=== PATIENT | male | born 1970 | race Native Hawaiian/Other Pacific Islander ===

== ENCOUNTER 2021-04-15 13:21 | Inpatient (IN) | payer OTHER ==
[2021-04-15 14:20] VITALS: BMI 23.7
[2021-04-15] MEDS ORDERED: MAG HYDROX/AL HYDROX/SIMETH 30 ML UNIT-DOSE CUP PO PRN (14:26)
[2021-04-15] MEDS ORDERED: MENTHOL/PHENOL 1 EACH UD MM PRN (14:26)
[2021-04-15] MEDS ORDERED: chlordiazePOXIDE HCL 25 MG CAPSULE PO ONE (14:26)
[2021-04-15] MEDS ORDERED: MAGNESIUM HYDROX 2400MG/30ML ORAL SUSPENSION 30 ML CUP PO PRN (14:26)
[2021-04-15] MEDS ORDERED: chlordiazePOXIDE HCL 25 MG CAPSULE PO PRN (14:26)
[2021-04-15] MEDS ORDERED: MAGNESIUM CITRATE 300 ML BOTTLE PO PRN (14:26)
[2021-04-15] MEDS ORDERED: ACETAMINOPHEN 325 MG TABLET (FP) PO PRN ×2 (14:26)
[2021-04-15] MEDS ORDERED: METHOCARBAMOL 500 MG TABLET PO PRN (14:26)
[2021-04-15] MEDS ORDERED: IBUPROFEN 400 MG TABLET (FP) PO PRN (14:26)
[2021-04-15] MEDS ORDERED: NICOTINE 10 MG CARTRIDGE (INHALER) IH PRN (14:26)
[2021-04-15] MEDS: BUPRENORPHINE/NALOXONE 4 MG/1 MG FILM PACKET SL SCH (17:39)
[2021-04-15] MEDS: chlordiazePOXIDE HCL 25 MG CAPSULE PO SCH ×2 (17:43→22:22)
[2021-04-15] MEDS: hydrOXYzine PAMOATE 25 MG CAPSULE (FP) PO SCH ×2 (17:50→22:22)
[2021-04-15] MEDS: PRENATAL VITAMINS W/ FOLIC ACID TABLET (FP) PO SCH (18:26)
[2021-04-15] MEDS: THIAMINE HCL 100 MG TABLET (FP) PO SCH (22:22)
[2021-04-15] MEDS: MELATONIN 5 MG TABLETS PO SCH (22:23)
[2021-04-16] MEDS: chlordiazePOXIDE HCL 25 MG CAPSULE PO SCH ×4 (06:22→22:07)
[2021-04-16] MEDS: hydrOXYzine PAMOATE 25 MG CAPSULE (FP) PO SCH ×5 (06:22→22:06)
[2021-04-16 10:27] LABS: HEMATOCRIT 37.8 % (35.4-49); HEMOGLOBIN 13.3 GM/dL (11.7-16.9); MCH 31.3 pg (25.7-33.7); MCHC 35.1 g/dl (32.0-35.9); MEAN PLT VOLUME 7.5 fl (7.5-11.1); PLATELET COUNT 250 10^3/uL (134-434); RBC 4.25 M/mm3 (4.00-5.60); RDW 12.9 % (11.9-15.9)
[2021-04-16 10:35] LABS: ALBUMIN 3.1 g/dl (3.4-5.0); BLOOD UREA NITROGEN 21.9 mg/dL (7-18); CALCIUM 8.2 mg/dL (8.5-10.1)
[2021-04-16 10:38] LABS: CREATININE 0.9 mg/dL (0.55-1.3)
[2021-04-16 10:39] LABS: BILIRUBIN,TOTAL 0.2 mg/dL (0.2-1); TOT PROT 6.1 g/dl (6.4-8.2)
[2021-04-16] MEDS: BUPRENORPHINE/NALOXONE 4 MG/1 MG FILM PACKET SL SCH (11:11)
[2021-04-16] MEDS: PRENATAL VITAMINS W/ FOLIC ACID TABLET (FP) PO SCH (11:13)
[2021-04-16] MEDS: NICOTINE POLACRILEX 4 MG GUM BUC PRN (17:58)
[2021-04-16] MEDS: CALCIUM CARBONATE 650 MG TABLET PO SCH (22:06)
[2021-04-16] MEDS: THIAMINE HCL 100 MG TABLET (FP) PO SCH (22:06)
[2021-04-16] MEDS: QUEtiapine FUMARATE 50 MG TABLET PO SCH (22:06)
[2021-04-16] MEDS: MELATONIN 5 MG TABLETS PO SCH (22:48)
[2021-04-17] MEDS: chlordiazePOXIDE HCL 25 MG CAPSULE PO SCH ×4 (06:04→22:59)
[2021-04-17] MEDS: hydrOXYzine PAMOATE 25 MG CAPSULE (FP) PO SCH ×5 (06:04→22:58)
[2021-04-17] MEDS: PRENATAL VITAMINS W/ FOLIC ACID TABLET (FP) PO SCH (10:22)
[2021-04-17] MEDS: CALCIUM CARBONATE 650 MG TABLET PO SCH ×2 (10:22→22:58)
[2021-04-17] MEDS: BUPRENORPHINE/NALOXONE 4 MG/1 MG FILM PACKET SL SCH (10:23)
[2021-04-17] MEDS: NICOTINE POLACRILEX 4 MG GUM BUC PRN (15:08)
[2021-04-17] MEDS ORDERED: TRIMETHOBENZAMIDE HCL 200MG/2ML INJ IM ONE (21:46)
[2021-04-17] MEDS: THIAMINE HCL 100 MG TABLET (FP) PO SCH (22:58)
[2021-04-17] MEDS: QUEtiapine FUMARATE 50 MG TABLET PO SCH (22:58)
[2021-04-17] MEDS: MELATONIN 5 MG TABLETS PO SCH (22:58)
[2021-04-18] MEDS ORDERED: chlordiazePOXIDE HCL 10 MG CAPSULE PO PRN
[2021-04-18] MEDS: ONDANSETRON *ODT* 4 MG TABLET SL PRN ×2 (02:50→10:51)
[2021-04-18] MEDS ORDERED: TRIMETHOBENZAMIDE HCL 200MG/2ML INJ IM ONE (03:52)
[2021-04-18] MEDS: chlordiazePOXIDE HCL 10 MG CAPSULE PO SCH ×4 (06:04→22:24)
[2021-04-18] MEDS: BISMUTH SUBSALICYLATE 524 MG/30 ML PO PRN (06:19)
[2021-04-18] MEDS: hydrOXYzine PAMOATE 25 MG CAPSULE (FP) PO SCH ×5 (07:04→22:22)
[2021-04-18] MEDS: BUPRENORPHINE/NALOXONE 4 MG/1 MG FILM PACKET SL SCH (10:21)
[2021-04-18] MEDS: NICOTINE POLACRILEX 4 MG GUM BUC PRN (10:22)
[2021-04-18] MEDS: PRENATAL VITAMINS W/ FOLIC ACID TABLET (FP) PO SCH (10:50)
[2021-04-18] MEDS: CALCIUM CARBONATE 650 MG TABLET PO SCH ×2 (10:59→22:23)
[2021-04-18] MEDS: THIAMINE HCL 100 MG TABLET (FP) PO SCH (22:22)
[2021-04-18] MEDS: QUEtiapine FUMARATE 50 MG TABLET PO SCH (22:22)
[2021-04-18] MEDS: MELATONIN 5 MG TABLETS PO SCH (22:22)
[2021-04-19] MEDS: ONDANSETRON *ODT* 4 MG TABLET SL PRN (07:11)
[2021-04-19] MEDS: chlordiazePOXIDE HCL 10 MG CAPSULE PO SCH ×2 (07:13→17:56)
[2021-04-19] MEDS: hydrOXYzine PAMOATE 25 MG CAPSULE (FP) PO SCH ×5 (07:13→22:09)
[2021-04-19] MEDS: PRENATAL VITAMINS W/ FOLIC ACID TABLET (FP) PO SCH (11:48)
[2021-04-19] MEDS: BUPRENORPHINE/NALOXONE 4 MG/1 MG FILM PACKET SL SCH (11:48)
[2021-04-19] MEDS: CALCIUM CARBONATE 650 MG TABLET PO SCH (11:49)
[2021-04-19 12:38] LABS: CALCIUM 8.6 mg/dL (8.5-10.1)
[2021-04-19 12:42] LABS: CREATININE 0.8 mg/dL (0.55-1.3)
[2021-04-19] MEDS: QUEtiapine FUMARATE 50 MG TABLET PO SCH (22:09)
[2021-04-19] MEDS: MELATONIN 5 MG TABLETS PO SCH (22:09)
[2021-04-19] MEDS: THIAMINE HCL 100 MG TABLET (FP) PO SCH (22:09)
[2021-04-19] MEDS: NICOTINE POLACRILEX 4 MG GUM BUC PRN (22:10)
[2021-04-20] MEDS ORDERED: chlordiazePOXIDE HCL 10 MG CAPSULE PO ONE (05:00)
[2021-04-20] MEDS: hydrOXYzine PAMOATE 25 MG CAPSULE (FP) PO SCH ×2 (06:22→10:16)
[2021-04-20] MEDS: NICOTINE POLACRILEX 4 MG GUM BUC PRN ×2 (06:25→10:17)
[2021-04-20] MEDS: BISMUTH SUBSALICYLATE 524 MG/30 ML PO PRN (08:32)
[2021-04-20 08:58] VITALS: BP 113/75; PULSE 108; TEMP 96.8
[2021-04-20] MEDS ORDERED: BUPRENORPHINE/NALOXONE 4 MG/1 MG FILM PACKET SL SCH (10:00)
[2021-04-20] MEDS: PRENATAL VITAMINS W/ FOLIC ACID TABLET (FP) PO SCH (10:16)
[2021-04-20] MEDS ORDERED: LOPERAMIDE HCL 2 MG CAPSULE PO ONE (12:18)
== END 2021-04-20 12:45 | disposition other institution (70) | DRG 773 ==
LOC: YASAS 13:21 → Y3N 14:28
PROVIDERS: ADMIT Allergy & Immunology; ATTEND Allergy & Immunology
PROC: HZ2ZZZZ Detoxification Services for Substance Abuse Treatment (ICD-10-PCS; principal; 2021-04-15)
DX: F11.23 Opioid dependence with withdrawal (principal); F10.230 Alcohol dependence with withdrawal, uncomplicated; F14.20 Cocaine dependence, uncomplicated; F17.210 Nicotine dependence, cigarettes, uncomplicated; F43.10 Post-traumatic stress disorder, unspecified; F41.9 Anxiety disorder, unspecified; F19.282 Other psychoactive substance dependence with psychoactive substance-induced sleep disorder; E86.0 Dehydration; R79.89 Other specified abnormal findings of blood chemistry; E83.51 Hypocalcemia; E46 Unspecified protein-calorie malnutrition; Z68.23 Body mass index [BMI] 23.0-23.9, adult; Z62.810 Personal history of physical and sexual abuse in childhood; Z56.0 Unemployment, unspecified; Z59.00 Homelessness unspecified
CPT/HCPCS: 36415; 80048; 80053; 85027; 86780; 87811; 93005; 93010; C9803; Q0162; U0003; U0005

== ENCOUNTER 2021-04-20 12:51 | Inpatient (IN) | payer OTHER ==
[2021-04-20] MEDS ORDERED: NICOTINE 10 MG CARTRIDGE (INHALER) IH PRN (13:47)
[2021-04-20] MEDS ORDERED: hydrOXYzine PAMOATE 25 MG CAPSULE (FP) PO PRN (13:47)
[2021-04-20] MEDS ORDERED: ACETAMINOPHEN 325 MG TABLET (FP) PO PRN (13:47)
[2021-04-20] MEDS ORDERED: guaiFENesin 200 MG/10 ML 10 ML UNIT-DOSE CUPS PO PRN (13:47)
[2021-04-20] MEDS ORDERED: MAGNESIUM HYDROX 2400MG/30ML ORAL SUSPENSION 30 ML CUP PO PRN (13:47)
[2021-04-20] MEDS ORDERED: P-EPHED 60MG/TRIPROLIDI 2.5MG TABLET PO PRN (13:47)
[2021-04-20] MEDS ORDERED: MAG HYDROX/AL HYDROX/SIMETH 30 ML UNIT-DOSE CUP PO PRN (13:47)
[2021-04-20] MEDS ORDERED: IBUPROFEN 400 MG TABLET (FP) PO PRN (13:47)
[2021-04-20] MEDS ORDERED: MAGNESIUM CITRATE 300 ML BOTTLE PO PRN (13:47)
[2021-04-20] MEDS ORDERED: MENTHOL/PHENOL 1 EACH UD MM PRN (13:47)
[2021-04-20] MEDS: THIAMINE HCL 100 MG TABLET (FP) PO SCH (21:28)
[2021-04-20] MEDS: QUEtiapine FUMARATE 50 MG TABLET PO SCH (21:28)
[2021-04-20] MEDS: MELATONIN 5 MG TABLETS PO SCH (21:28)
[2021-04-20] MEDS: BUPRENORPHINE/NALOXONE 4 MG/1 MG FILM PACKET SL SCH (21:29)
[2021-04-21] MEDS: LOPERAMIDE HCL 2 MG CAPSULE PO PRN (08:35)
[2021-04-21] MEDS ORDERED: TRIMETHOBENZAMIDE HCL 200MG/2ML INJ IM ONE ×2 (08:36→12:57)
[2021-04-21] MEDS ORDERED: ONDANSETRON *ODT* 4 MG TABLET SL PRN (08:37)
[2021-04-21] MEDS ORDERED: DICYCLOMINE HCL 10 MG CAPSULE PO PRN (10:22)
[2021-04-21] MEDS: PRENATAL VITAMINS W/ FOLIC ACID TABLET (FP) PO SCH (11:00)
[2021-04-21] MEDS: BUPRENORPHINE/NALOXONE 4 MG/1 MG FILM PACKET SL SCH ×2 (11:00→21:12)
[2021-04-21] MEDS: NICOTINE 7 MG/24 HOURS TOPICAL PATCH TD SCH (11:00)
[2021-04-21] MEDS ORDERED: FLU VACC QS2021-22(6MOS UP)/PF 60 MCG/0.5 ML SYRINGE IM ONE (12:00)
[2021-04-21] MEDS ORDERED: LORazepam 2 MG/ML SDV VIAL IM ONE (13:00)
[2021-04-21] MEDS ORDERED: BUPRENORPHINE/NALOXONE 4 MG/1 MG FILM PACKET SL ONE (14:30)
[2021-04-21 16:04] LABS: PH,URINE 5.5 (5.0-8.0); URINE APPEARANCE TURBID; URINE BILIRUBIN NEGATIVE (NEGATIVE); URINE COLOR YELLOW; URINE GLUCOSE (UA) NEGATIVE (NEGATIVE); URINE KETONE NEGATIVE (NEGATIVE); URINE LEUK ESTERASE NEGATIVE (NEGATIVE); URINE NITRITE NEGATIVE (NEGATIVE); URINE PROTEIN NEGATIVE (NEGATIVE); URINE UROBILINOGEN 0.2 mg/dL (0.2-1.0)
[2021-04-21] MEDS: QUEtiapine FUMARATE 50 MG TABLET PO SCH (21:12)
[2021-04-21] MEDS: THIAMINE HCL 100 MG TABLET (FP) PO SCH (21:12)
[2021-04-21] MEDS: MELATONIN 5 MG TABLETS PO SCH (21:13)
[2021-04-21] MEDS: NICOTINE POLACRILEX 2 MG GUM BUC PRN (21:15)
[2021-04-22] MEDS: NICOTINE 7 MG/24 HOURS TOPICAL PATCH TD SCH (09:53)
[2021-04-22] MEDS: PRENATAL VITAMINS W/ FOLIC ACID TABLET (FP) PO SCH (09:53)
[2021-04-22] MEDS: BUPRENORPHINE/NALOXONE 4 MG/1 MG FILM PACKET SL SCH ×2 (09:54→21:08)
[2021-04-22] MEDS: LOPERAMIDE HCL 2 MG CAPSULE PO PRN (09:55)
[2021-04-22] MEDS: NICOTINE POLACRILEX 2 MG GUM BUC PRN ×2 (10:09→21:11)
[2021-04-22] MEDS: THIAMINE HCL 100 MG TABLET (FP) PO SCH (21:08)
[2021-04-22] MEDS: QUEtiapine FUMARATE 50 MG TABLET PO SCH (21:08)
[2021-04-22] MEDS: MELATONIN 5 MG TABLETS PO SCH (21:08)
[2021-04-23] MEDS: BUPRENORPHINE/NALOXONE 4 MG/1 MG FILM PACKET SL SCH ×2 (09:14→21:14)
[2021-04-23] MEDS: PRENATAL VITAMINS W/ FOLIC ACID TABLET (FP) PO SCH (09:14)
[2021-04-23] MEDS: NICOTINE POLACRILEX 2 MG GUM BUC PRN ×2 (09:14→15:42)
[2021-04-23] MEDS: NICOTINE 7 MG/24 HOURS TOPICAL PATCH TD SCH (09:14)
[2021-04-23] MEDS: THIAMINE HCL 100 MG TABLET (FP) PO SCH (21:12)
[2021-04-23] MEDS: MELATONIN 5 MG TABLETS PO SCH (21:12)
[2021-04-23] MEDS: QUEtiapine FUMARATE 50 MG TABLET PO SCH (21:12)
[2021-04-24] MEDS: BUPRENORPHINE/NALOXONE 4 MG/1 MG FILM PACKET SL SCH ×2 (10:05→21:24)
[2021-04-24] MEDS: PRENATAL VITAMINS W/ FOLIC ACID TABLET (FP) PO SCH (10:05)
[2021-04-24] MEDS: NICOTINE 7 MG/24 HOURS TOPICAL PATCH TD SCH (10:06)
[2021-04-24] MEDS: NICOTINE POLACRILEX 2 MG GUM BUC PRN ×3 (10:07→21:24)
[2021-04-24] MEDS: THIAMINE HCL 100 MG TABLET (FP) PO SCH (21:24)
[2021-04-24] MEDS: MELATONIN 5 MG TABLETS PO SCH (21:28)
[2021-04-24] MEDS: QUEtiapine FUMARATE 50 MG TABLET PO SCH (21:29)
[2021-04-25] MEDS: PRENATAL VITAMINS W/ FOLIC ACID TABLET (FP) PO SCH (09:23)
[2021-04-25] MEDS: NICOTINE 7 MG/24 HOURS TOPICAL PATCH TD SCH (09:23)
[2021-04-25] MEDS: BUPRENORPHINE/NALOXONE 4 MG/1 MG FILM PACKET SL SCH ×2 (09:23→21:24)
[2021-04-25] MEDS: NICOTINE POLACRILEX 2 MG GUM BUC PRN ×2 (09:24→21:26)
[2021-04-25] MEDS: QUEtiapine FUMARATE 50 MG TABLET PO SCH (21:23)
[2021-04-25] MEDS: MELATONIN 5 MG TABLETS PO SCH (21:23)
[2021-04-25] MEDS: THIAMINE HCL 100 MG TABLET (FP) PO SCH (21:23)
[2021-04-26] MEDS: NICOTINE 7 MG/24 HOURS TOPICAL PATCH TD SCH (10:10)
[2021-04-26] MEDS: PRENATAL VITAMINS W/ FOLIC ACID TABLET (FP) PO SCH (10:10)
[2021-04-26] MEDS: BUPRENORPHINE/NALOXONE 4 MG/1 MG FILM PACKET SL SCH ×2 (10:10→21:06)
[2021-04-26] MEDS: NICOTINE POLACRILEX 2 MG GUM BUC PRN ×2 (10:11→19:45)
[2021-04-26] MEDS ORDERED: PT OWN MED DRAWER 7, Y5N ONE (11:07)
[2021-04-26] MEDS: MELATONIN 5 MG TABLETS PO SCH (21:05)
[2021-04-26] MEDS: QUEtiapine FUMARATE 50 MG TABLET PO SCH (21:05)
[2021-04-26] MEDS: THIAMINE HCL 100 MG TABLET (FP) PO SCH (21:06)
[2021-04-27] MEDS: NICOTINE 7 MG/24 HOURS TOPICAL PATCH TD SCH (09:18)
[2021-04-27] MEDS: PRENATAL VITAMINS W/ FOLIC ACID TABLET (FP) PO SCH (09:18)
[2021-04-27] MEDS: BUPRENORPHINE/NALOXONE 4 MG/1 MG FILM PACKET SL SCH ×2 (09:18→18:07)
[2021-04-27] MEDS: NICOTINE POLACRILEX 2 MG GUM BUC PRN ×4 (09:19→21:14)
[2021-04-27] MEDS ORDERED: BUPRENORPHINE/NALOXONE 4 MG/1 MG FILM PACKET SL ONE (14:30)
[2021-04-27] MEDS ORDERED: PT OWN MED DRAWER 7, Y5N ONE (14:55)
[2021-04-27] MEDS: QUEtiapine FUMARATE 50 MG TABLET PO SCH (21:13)
[2021-04-27] MEDS: THIAMINE HCL 100 MG TABLET (FP) PO SCH (21:13)
[2021-04-27] MEDS: MELATONIN 5 MG TABLETS PO SCH (21:13)
[2021-04-27] MEDS ORDERED: BUPRENORPHINE/NALOXONE 4 MG/1 MG FILM PACKET SL SCH (22:00)
[2021-04-28] MEDS: BUPRENORPHINE/NALOXONE 4 MG/1 MG FILM PACKET SL SCH ×3 (06:44→17:48)
[2021-04-28] MEDS: NICOTINE POLACRILEX 2 MG GUM BUC PRN ×3 (06:45→21:31)
[2021-04-28] MEDS: NICOTINE 7 MG/24 HOURS TOPICAL PATCH TD SCH (09:58)
[2021-04-28] MEDS: PRENATAL VITAMINS W/ FOLIC ACID TABLET (FP) PO SCH (09:58)
[2021-04-28] MEDS ORDERED: PT OWN MED DRAWER 7, Y5N ONE (15:13)
[2021-04-28] MEDS: MELATONIN 5 MG TABLETS PO SCH (21:27)
[2021-04-28] MEDS: QUEtiapine FUMARATE 50 MG TABLET PO SCH (21:29)
[2021-04-28] MEDS: THIAMINE HCL 100 MG TABLET (FP) PO SCH (22:05)
[2021-04-29] MEDS: BUPRENORPHINE/NALOXONE 4 MG/1 MG FILM PACKET SL SCH ×3 (06:19→18:05)
[2021-04-29] MEDS: NICOTINE POLACRILEX 2 MG GUM BUC PRN ×4 (06:20→21:06)
[2021-04-29] MEDS: NICOTINE 7 MG/24 HOURS TOPICAL PATCH TD SCH (10:02)
[2021-04-29] MEDS: PRENATAL VITAMINS W/ FOLIC ACID TABLET (FP) PO SCH (10:02)
[2021-04-29] MEDS: THIAMINE HCL 100 MG TABLET (FP) PO SCH (21:05)
[2021-04-29] MEDS: QUEtiapine FUMARATE 50 MG TABLET PO SCH (21:05)
[2021-04-29] MEDS: MELATONIN 5 MG TABLETS PO SCH (21:05)
[2021-04-30] MEDS: BUPRENORPHINE/NALOXONE 4 MG/1 MG FILM PACKET SL SCH ×3 (06:20→18:00)
[2021-04-30] MEDS: NICOTINE POLACRILEX 2 MG GUM BUC PRN ×4 (06:21→21:10)
[2021-04-30] MEDS: NICOTINE 7 MG/24 HOURS TOPICAL PATCH TD SCH (10:14)
[2021-04-30] MEDS: PRENATAL VITAMINS W/ FOLIC ACID TABLET (FP) PO SCH (10:14)
[2021-04-30] MEDS: MELATONIN 5 MG TABLETS PO SCH (21:09)
[2021-04-30] MEDS: QUEtiapine FUMARATE 50 MG TABLET PO SCH (21:09)
[2021-04-30] MEDS: THIAMINE HCL 100 MG TABLET (FP) PO SCH (21:10)
[2021-05-01] MEDS: NICOTINE POLACRILEX 2 MG GUM BUC PRN ×3 (06:30→21:02)
[2021-05-01] MEDS: BUPRENORPHINE/NALOXONE 4 MG/1 MG FILM PACKET SL SCH ×3 (06:30→17:30)
[2021-05-01] MEDS: PRENATAL VITAMINS W/ FOLIC ACID TABLET (FP) PO SCH (09:21)
[2021-05-01] MEDS: NICOTINE 7 MG/24 HOURS TOPICAL PATCH TD SCH (09:22)
[2021-05-01] MEDS: MELATONIN 5 MG TABLETS PO SCH (21:02)
[2021-05-01] MEDS: THIAMINE HCL 100 MG TABLET (FP) PO SCH (21:02)
[2021-05-01] MEDS: QUEtiapine FUMARATE 50 MG TABLET PO SCH (21:02)
[2021-05-02] MEDS: BUPRENORPHINE/NALOXONE 4 MG/1 MG FILM PACKET SL SCH (06:19)
[2021-05-02] MEDS: NICOTINE POLACRILEX 2 MG GUM BUC PRN ×3 (06:20→19:58)
[2021-05-02] MEDS: PRENATAL VITAMINS W/ FOLIC ACID TABLET (FP) PO SCH (09:32)
[2021-05-02] MEDS: NICOTINE 7 MG/24 HOURS TOPICAL PATCH TD SCH (09:32)
[2021-05-02] MEDS: THIAMINE HCL 100 MG TABLET (FP) PO SCH (21:29)
[2021-05-02] MEDS: MELATONIN 5 MG TABLETS PO SCH (21:29)
[2021-05-02] MEDS: QUEtiapine FUMARATE 50 MG TABLET PO SCH (21:29)
[2021-05-02] MEDS: BUPRENORPHINE/NALOXONE 8 MG/2 MG FILM PACKET SL SCH (21:33)
[2021-05-03] MEDS: NICOTINE 7 MG/24 HOURS TOPICAL PATCH TD SCH (09:59)
[2021-05-03] MEDS: PRENATAL VITAMINS W/ FOLIC ACID TABLET (FP) PO SCH (09:59)
[2021-05-03] MEDS: BUPRENORPHINE/NALOXONE 8 MG/2 MG FILM PACKET SL SCH ×2 (09:59→21:12)
[2021-05-03] MEDS: NICOTINE POLACRILEX 2 MG GUM BUC PRN ×3 (10:00→18:20)
[2021-05-03] MEDS: QUEtiapine FUMARATE 50 MG TABLET PO SCH (21:12)
[2021-05-03] MEDS: MELATONIN 5 MG TABLETS PO SCH (21:12)
[2021-05-03] MEDS: THIAMINE HCL 100 MG TABLET (FP) PO SCH (21:12)
[2021-05-04] MEDS: PRENATAL VITAMINS W/ FOLIC ACID TABLET (FP) PO SCH (09:16)
[2021-05-04] MEDS: NICOTINE 7 MG/24 HOURS TOPICAL PATCH TD SCH (09:16)
[2021-05-04] MEDS: BUPRENORPHINE/NALOXONE 8 MG/2 MG FILM PACKET SL SCH ×2 (09:17→21:13)
[2021-05-04] MEDS: NICOTINE POLACRILEX 2 MG GUM BUC PRN ×3 (09:17→17:56)
[2021-05-04] MEDS: QUEtiapine FUMARATE 50 MG TABLET PO SCH (21:13)
[2021-05-04] MEDS: MELATONIN 5 MG TABLETS PO SCH (21:13)
[2021-05-04] MEDS: THIAMINE HCL 100 MG TABLET (FP) PO SCH (21:13)
[2021-05-05] MEDS: PRENATAL VITAMINS W/ FOLIC ACID TABLET (FP) PO SCH (10:09)
[2021-05-05] MEDS: BUPRENORPHINE/NALOXONE 8 MG/2 MG FILM PACKET SL SCH ×2 (10:09→21:14)
[2021-05-05] MEDS: NICOTINE POLACRILEX 2 MG GUM BUC PRN ×3 (10:11→19:52)
[2021-05-05] MEDS: NICOTINE 7 MG/24 HOURS TOPICAL PATCH TD SCH ×2 (11:14→11:32)
[2021-05-05] MEDS: THIAMINE HCL 100 MG TABLET (FP) PO SCH (21:12)
[2021-05-05] MEDS: MELATONIN 5 MG TABLETS PO SCH (21:12)
[2021-05-05] MEDS: QUEtiapine FUMARATE 50 MG TABLET PO SCH (21:13)
[2021-05-06] MEDS: NICOTINE POLACRILEX 2 MG GUM BUC PRN ×2 (09:35→20:14)
[2021-05-06] MEDS: NICOTINE 7 MG/24 HOURS TOPICAL PATCH TD SCH (09:35)
[2021-05-06] MEDS: PRENATAL VITAMINS W/ FOLIC ACID TABLET (FP) PO SCH (09:35)
[2021-05-06] MEDS: BUPRENORPHINE/NALOXONE 8 MG/2 MG FILM PACKET SL SCH ×2 (09:35→21:45)
[2021-05-06] MEDS: QUEtiapine FUMARATE 50 MG TABLET PO SCH (21:44)
[2021-05-06] MEDS: THIAMINE HCL 100 MG TABLET (FP) PO SCH (21:44)
[2021-05-06] MEDS: MELATONIN 5 MG TABLETS PO SCH (21:44)
[2021-05-07] MEDS: BUPRENORPHINE/NALOXONE 8 MG/2 MG FILM PACKET SL SCH ×2 (09:55→21:31)
[2021-05-07] MEDS: PRENATAL VITAMINS W/ FOLIC ACID TABLET (FP) PO SCH (09:55)
[2021-05-07] MEDS: NICOTINE 7 MG/24 HOURS TOPICAL PATCH TD SCH (09:56)
[2021-05-07] MEDS: NICOTINE POLACRILEX 2 MG GUM BUC PRN ×3 (12:54→21:41)
[2021-05-07] MEDS: QUEtiapine FUMARATE 50 MG TABLET PO SCH (21:30)
[2021-05-07] MEDS: THIAMINE HCL 100 MG TABLET (FP) PO SCH (21:30)
[2021-05-07] MEDS: MELATONIN 5 MG TABLETS PO SCH (21:30)
[2021-05-08 07:12] VITALS: BP 103/63; PULSE 67; TEMP 97.1
[2021-05-08] MEDS: PRENATAL VITAMINS W/ FOLIC ACID TABLET (FP) PO SCH (10:21)
[2021-05-08] MEDS: BUPRENORPHINE/NALOXONE 8 MG/2 MG FILM PACKET SL SCH (10:21)
[2021-05-08] MEDS: NICOTINE 7 MG/24 HOURS TOPICAL PATCH TD SCH (10:22)
[2021-05-08] MEDS: NICOTINE POLACRILEX 2 MG GUM BUC PRN (15:48)
== END 2021-05-08 15:54 | disposition home or self-care (01) | DRG 772 ==
LOC: YASAS 12:51 → Y3E 12:53 → Y3W 05-03 14:04
PROVIDERS: ADMIT Allergy & Immunology; ATTEND Allergy & Immunology
PROC: HZ42ZZZ Group Counseling for Substance Abuse Treatment, Cognitive-Behavioral (ICD-10-PCS; principal; 2021-04-20)
DX: F11.20 Opioid dependence, uncomplicated (principal); F10.20 Alcohol dependence, uncomplicated; F14.20 Cocaine dependence, uncomplicated; F17.210 Nicotine dependence, cigarettes, uncomplicated; U07.1 COVID-19; Z51.81 Encounter for therapeutic drug level monitoring; Z79.899 Other long term (current) drug therapy
CPT/HCPCS: 36415; 81003; 82150; 83690; C9803-CS; Q0162; U0003; U0005

== ENCOUNTER 2021-05-15 09:37 | Inpatient (IN) | payer OTHER ==
[2021-05-15] MEDS ORDERED: P-EPHED 60MG/TRIPROLIDI 2.5MG TABLET PO PRN (10:01)
[2021-05-15] MEDS ORDERED: LOPERAMIDE HCL 2 MG CAPSULE PO PRN (10:01)
[2021-05-15] MEDS ORDERED: MAG HYDROX/AL HYDROX/SIMETH 30 ML UNIT-DOSE CUP PO PRN (10:01)
[2021-05-15] MEDS ORDERED: IBUPROFEN 400 MG TABLET (FP) PO PRN (10:01)
[2021-05-15] MEDS ORDERED: MAGNESIUM CITRATE 300 ML BOTTLE PO PRN (10:01)
[2021-05-15] MEDS ORDERED: MAGNESIUM HYDROX 2400MG/30ML ORAL SUSPENSION 30 ML CUP PO PRN (10:01)
[2021-05-15] MEDS ORDERED: ACETAMINOPHEN 325 MG TABLET (FP) PO PRN (10:01)
[2021-05-15] MEDS ORDERED: guaiFENesin 200 MG/10 ML 10 ML UNIT-DOSE CUPS PO PRN (10:01)
[2021-05-15] MEDS ORDERED: NICOTINE 10 MG CARTRIDGE (INHALER) IH PRN (10:01)
[2021-05-15 10:23] VITALS: BMI 25.7
[2021-05-15] MEDS: NICOTINE POLACRILEX 4 MG GUM BC PRN ×2 (15:04→21:13)
[2021-05-15] MEDS: PRENATAL VITAMINS W/ FOLIC ACID TABLET (FP) PO SCH (15:04)
[2021-05-15] MEDS: hydrOXYzine PAMOATE 25 MG CAPSULE (FP) PO SCH ×3 (15:06→21:10)
[2021-05-15 18:38] LABS: URINE APPEARANCE CLEAR; URINE BILIRUBIN NEGATIVE (NEGATIVE); URINE COLOR YELLOW; URINE GLUCOSE (UA) NEGATIVE (NEGATIVE); URINE KETONE NEGATIVE (NEGATIVE); URINE LEUK ESTERASE NEGATIVE (NEGATIVE); URINE NITRITE NEGATIVE (NEGATIVE); URINE PROTEIN NEGATIVE (NEGATIVE); URINE UROBILINOGEN 0.2 mg/dL (0.2-1.0)
[2021-05-15] MEDS: THIAMINE HCL 100 MG TABLET (FP) PO SCH (21:09)
[2021-05-15] MEDS: BUPRENORPHINE/NALOXONE 8 MG/2 MG FILM PACKET SL SCH (21:10)
[2021-05-15] MEDS ORDERED: QUEtiapine FUMARATE 50 MG TABLET PO ONE (21:24)
[2021-05-15] MEDS ORDERED: MELATONIN 5 MG TABLETS PO SCH (22:00)
[2021-05-16] MEDS: hydrOXYzine PAMOATE 25 MG CAPSULE (FP) PO SCH ×5 (06:20→21:07)
[2021-05-16] MEDS: BUPRENORPHINE/NALOXONE 8 MG/2 MG FILM PACKET SL SCH ×2 (09:43→17:38)
[2021-05-16] MEDS: PRENATAL VITAMINS W/ FOLIC ACID TABLET (FP) PO SCH (09:43)
[2021-05-16] MEDS: NICOTINE POLACRILEX 4 MG GUM BC PRN ×3 (09:44→21:08)
[2021-05-16 10:30] LABS: ALBUMIN 3.2 g/dl (3.4-5.0); CALCIUM 8.6 mg/dL (8.5-10.1)
[2021-05-16 10:33] LABS: CREATININE 0.8 mg/dL (0.55-1.3)
[2021-05-16 10:35] LABS: BILIRUBIN,TOTAL 0.4 mg/dL (0.2-1); TOT PROT 5.9 g/dl (6.4-8.2)
[2021-05-16 10:39] LABS: HEMATOCRIT 37.6 % (35.4-49); HEMOGLOBIN 12.9 GM/dL (11.7-16.9); MCH 30.2 pg (25.7-33.7); MCHC 34.3 g/dl (32.0-35.9); MEAN PLT VOLUME 7.9 fl (7.5-11.1); PLATELET COUNT 228 10^3/uL (134-434); RBC 4.27 M/mm3 (4.00-5.60); RDW 12.9 % (11.9-15.9); WHITE BLOOD COUNT 6.1 K/mm3 (4.0-10.0)
[2021-05-16] MEDS: THIAMINE HCL 100 MG TABLET (FP) PO SCH (21:07)
[2021-05-16] MEDS: QUEtiapine FUMARATE 50 MG TABLET PO SCH (21:07)
[2021-05-17] MEDS: hydrOXYzine PAMOATE 25 MG CAPSULE (FP) PO SCH ×2 (06:31→09:49)
[2021-05-17] MEDS: BUPRENORPHINE/NALOXONE 8 MG/2 MG FILM PACKET SL SCH ×2 (09:49→18:22)
[2021-05-17] MEDS: PRENATAL VITAMINS W/ FOLIC ACID TABLET (FP) PO SCH (09:49)
[2021-05-17] MEDS: NICOTINE POLACRILEX 4 MG GUM BC PRN ×3 (09:50→18:55)
[2021-05-17 16:03] LABS: SYPHILIS W/ RPR CONF NON-REACTIVE (NONREACTIVE)
[2021-05-17] MEDS: THIAMINE HCL 100 MG TABLET (FP) PO SCH (21:02)
[2021-05-17] MEDS: QUEtiapine FUMARATE 50 MG TABLET PO SCH (21:02)
[2021-05-18] MEDS: PRENATAL VITAMINS W/ FOLIC ACID TABLET (FP) PO SCH (09:28)
[2021-05-18] MEDS: BUPRENORPHINE/NALOXONE 8 MG/2 MG FILM PACKET SL SCH ×2 (09:28→17:56)
[2021-05-18] MEDS: NICOTINE POLACRILEX 4 MG GUM BC PRN ×4 (13:17→21:11)
[2021-05-18] MEDS: THIAMINE HCL 100 MG TABLET (FP) PO SCH (21:09)
[2021-05-18] MEDS: QUEtiapine FUMARATE 50 MG TABLET PO SCH (21:09)
[2021-05-19] MEDS: PRENATAL VITAMINS W/ FOLIC ACID TABLET (FP) PO SCH (10:07)
[2021-05-19] MEDS: BUPRENORPHINE/NALOXONE 8 MG/2 MG FILM PACKET SL SCH ×2 (10:07→18:08)
[2021-05-19] MEDS: NICOTINE POLACRILEX 4 MG GUM BC PRN ×2 (10:08→12:44)
[2021-05-19] MEDS: THIAMINE HCL 100 MG TABLET (FP) PO SCH (21:40)
[2021-05-19] MEDS: hydrOXYzine PAMOATE 25 MG CAPSULE (FP) PO PRN (21:41)
[2021-05-19] MEDS: QUEtiapine FUMARATE 50 MG TABLET PO SCH (21:41)
[2021-05-20] MEDS: PRENATAL VITAMINS W/ FOLIC ACID TABLET (FP) PO SCH (09:57)
[2021-05-20] MEDS: BUPRENORPHINE/NALOXONE 8 MG/2 MG FILM PACKET SL SCH ×2 (09:58→17:55)
[2021-05-20] MEDS: NICOTINE POLACRILEX 4 MG GUM BC PRN ×4 (10:00→21:05)
[2021-05-20] MEDS: QUEtiapine FUMARATE 50 MG TABLET PO SCH (21:05)
[2021-05-20] MEDS: THIAMINE HCL 100 MG TABLET (FP) PO SCH (21:05)
[2021-05-21] MEDS: BUPRENORPHINE/NALOXONE 8 MG/2 MG FILM PACKET SL SCH ×2 (09:35→17:42)
[2021-05-21] MEDS: PRENATAL VITAMINS W/ FOLIC ACID TABLET (FP) PO SCH (09:35)
[2021-05-21] MEDS: NICOTINE POLACRILEX 4 MG GUM BC PRN ×3 (09:36→17:48)
[2021-05-21] MEDS: QUEtiapine FUMARATE 50 MG TABLET PO SCH (21:24)
[2021-05-21] MEDS: THIAMINE HCL 100 MG TABLET (FP) PO SCH (21:24)
[2021-05-22] MEDS: BUPRENORPHINE/NALOXONE 8 MG/2 MG FILM PACKET SL SCH ×2 (09:29→18:02)
[2021-05-22] MEDS: PRENATAL VITAMINS W/ FOLIC ACID TABLET (FP) PO SCH (09:29)
[2021-05-22] MEDS: NICOTINE POLACRILEX 4 MG GUM BC PRN ×4 (09:31→21:17)
[2021-05-22] MEDS: THIAMINE HCL 100 MG TABLET (FP) PO SCH (21:16)
[2021-05-22] MEDS: QUEtiapine FUMARATE 50 MG TABLET PO SCH (21:16)
[2021-05-23] MEDS: BUPRENORPHINE/NALOXONE 8 MG/2 MG FILM PACKET SL SCH ×2 (10:14→17:22)
[2021-05-23] MEDS: PRENATAL VITAMINS W/ FOLIC ACID TABLET (FP) PO SCH (10:14)
[2021-05-23] MEDS: NICOTINE POLACRILEX 4 MG GUM BC PRN ×3 (10:14→21:05)
[2021-05-23] MEDS: QUEtiapine FUMARATE 50 MG TABLET PO SCH (21:05)
[2021-05-23] MEDS: THIAMINE HCL 100 MG TABLET (FP) PO SCH (21:05)
[2021-05-24] MEDS: BUPRENORPHINE/NALOXONE 8 MG/2 MG FILM PACKET SL SCH ×2 (09:52→17:19)
[2021-05-24] MEDS: PRENATAL VITAMINS W/ FOLIC ACID TABLET (FP) PO SCH (09:52)
[2021-05-24] MEDS: NICOTINE POLACRILEX 4 MG GUM BC PRN ×3 (09:53→21:05)
[2021-05-24] MEDS: QUEtiapine FUMARATE 50 MG TABLET PO SCH (21:03)
[2021-05-24] MEDS: THIAMINE HCL 100 MG TABLET (FP) PO SCH (21:04)
[2021-05-25] MEDS: BUPRENORPHINE/NALOXONE 8 MG/2 MG FILM PACKET SL SCH ×2 (09:31→17:29)
[2021-05-25] MEDS: PRENATAL VITAMINS W/ FOLIC ACID TABLET (FP) PO SCH (09:31)
[2021-05-25] MEDS: NICOTINE POLACRILEX 4 MG GUM BC PRN ×3 (09:32→17:31)
[2021-05-25] MEDS: THIAMINE HCL 100 MG TABLET (FP) PO SCH (21:27)
[2021-05-25] MEDS: QUEtiapine FUMARATE 50 MG TABLET PO SCH (21:27)
[2021-05-26] MEDS: PRENATAL VITAMINS W/ FOLIC ACID TABLET (FP) PO SCH (09:55)
[2021-05-26] MEDS: BUPRENORPHINE/NALOXONE 8 MG/2 MG FILM PACKET SL SCH ×2 (09:55→18:12)
[2021-05-26] MEDS: NICOTINE POLACRILEX 4 MG GUM BC PRN ×4 (09:55→21:12)
[2021-05-26] MEDS: THIAMINE HCL 100 MG TABLET (FP) PO SCH (21:11)
[2021-05-26] MEDS: QUEtiapine FUMARATE 50 MG TABLET PO SCH (21:11)
[2021-05-27] MEDS: BUPRENORPHINE/NALOXONE 8 MG/2 MG FILM PACKET SL SCH ×2 (09:57→17:51)
[2021-05-27] MEDS: PRENATAL VITAMINS W/ FOLIC ACID TABLET (FP) PO SCH (09:57)
[2021-05-27] MEDS: NICOTINE POLACRILEX 4 MG GUM BC PRN ×5 (09:57→21:26)
[2021-05-27] MEDS: QUEtiapine FUMARATE 50 MG TABLET PO SCH (21:25)
[2021-05-27] MEDS: THIAMINE HCL 100 MG TABLET (FP) PO SCH (21:25)
[2021-05-28] MEDS: PRENATAL VITAMINS W/ FOLIC ACID TABLET (FP) PO SCH (10:14)
[2021-05-28] MEDS: BUPRENORPHINE/NALOXONE 8 MG/2 MG FILM PACKET SL SCH ×2 (10:14→17:49)
[2021-05-28] MEDS: NICOTINE POLACRILEX 4 MG GUM BC PRN ×4 (10:16→21:46)
[2021-05-28] MEDS: hydrOXYzine PAMOATE 25 MG CAPSULE (FP) PO PRN (21:45)
[2021-05-28] MEDS: THIAMINE HCL 100 MG TABLET (FP) PO SCH (21:45)
[2021-05-28] MEDS: QUEtiapine FUMARATE 50 MG TABLET PO SCH (21:45)
[2021-05-29] MEDS: BUPRENORPHINE/NALOXONE 8 MG/2 MG FILM PACKET SL SCH ×2 (10:01→17:50)
[2021-05-29] MEDS: NICOTINE POLACRILEX 4 MG GUM BC PRN ×4 (10:02→21:21)
[2021-05-29] MEDS: PRENATAL VITAMINS W/ FOLIC ACID TABLET (FP) PO SCH (10:03)
[2021-05-29] MEDS: QUEtiapine FUMARATE 50 MG TABLET PO SCH (21:21)
[2021-05-29] MEDS: THIAMINE HCL 100 MG TABLET (FP) PO SCH (23:32)
[2021-05-30] MEDS: NICOTINE POLACRILEX 4 MG GUM BC PRN ×5 (06:36→19:50)
[2021-05-30] MEDS: BUPRENORPHINE/NALOXONE 8 MG/2 MG FILM PACKET SL SCH ×2 (09:55→17:42)
[2021-05-30] MEDS: PRENATAL VITAMINS W/ FOLIC ACID TABLET (FP) PO SCH (09:55)
[2021-05-30] MEDS: QUEtiapine FUMARATE 50 MG TABLET PO SCH (21:20)
[2021-05-30] MEDS: THIAMINE HCL 100 MG TABLET (FP) PO SCH (21:20)
[2021-05-31] MEDS: NICOTINE POLACRILEX 4 MG GUM BC PRN ×3 (09:47→21:10)
[2021-05-31] MEDS: BUPRENORPHINE/NALOXONE 8 MG/2 MG FILM PACKET SL SCH ×2 (09:47→18:08)
[2021-05-31] MEDS: PRENATAL VITAMINS W/ FOLIC ACID TABLET (FP) PO SCH (09:47)
[2021-05-31] MEDS: QUEtiapine FUMARATE 50 MG TABLET PO SCH (21:09)
[2021-05-31] MEDS: THIAMINE HCL 100 MG TABLET (FP) PO SCH (21:09)
[2021-06-01] MEDS: PRENATAL VITAMINS W/ FOLIC ACID TABLET (FP) PO SCH (10:01)
[2021-06-01] MEDS: NICOTINE POLACRILEX 4 MG GUM BC PRN ×5 (10:01→21:22)
[2021-06-01] MEDS: BUPRENORPHINE/NALOXONE 8 MG/2 MG FILM PACKET SL SCH ×2 (10:01→17:58)
[2021-06-01] MEDS ORDERED: COLLOIDAL OATMEAL 1 BAR EACH TP PRN (12:54)
[2021-06-01] MEDS: SELENIUM SULFIDE 2.5% LOTION 4 OZ. TP SCH (15:37)
[2021-06-01] MEDS: MINERAL OIL/PETROLAT/WATER TOPICAL CREAM 113 GM JAR TP PRN (15:40)
[2021-06-01] MEDS: QUEtiapine FUMARATE 50 MG TABLET PO SCH (21:21)
[2021-06-01] MEDS: THIAMINE HCL 100 MG TABLET (FP) PO SCH (21:21)
[2021-06-02] MEDS: BUPRENORPHINE/NALOXONE 8 MG/2 MG FILM PACKET SL SCH ×2 (09:37→18:18)
[2021-06-02] MEDS: PRENATAL VITAMINS W/ FOLIC ACID TABLET (FP) PO SCH (09:37)
[2021-06-02] MEDS: NICOTINE POLACRILEX 4 MG GUM BC PRN ×4 (09:38→19:10)
[2021-06-02] MEDS: SELENIUM SULFIDE 2.5% LOTION 4 OZ. TP SCH (10:51)
[2021-06-02] MEDS: MINERAL OIL/PETROLAT/WATER TOPICAL CREAM 113 GM JAR TP PRN (10:52)
[2021-06-02] MEDS: THIAMINE HCL 100 MG TABLET (FP) PO SCH (21:09)
[2021-06-02] MEDS: QUEtiapine FUMARATE 50 MG TABLET PO SCH (21:09)
[2021-06-03] MEDS: PRENATAL VITAMINS W/ FOLIC ACID TABLET (FP) PO SCH (09:49)
[2021-06-03] MEDS: BUPRENORPHINE/NALOXONE 8 MG/2 MG FILM PACKET SL SCH ×2 (09:49→18:00)
[2021-06-03] MEDS: NICOTINE POLACRILEX 4 MG GUM BC PRN ×4 (09:50→21:20)
[2021-06-03] MEDS: SELENIUM SULFIDE 2.5% LOTION 4 OZ. TP SCH (10:31)
[2021-06-03] MEDS: QUEtiapine FUMARATE 50 MG TABLET PO SCH (21:19)
[2021-06-03] MEDS: THIAMINE HCL 100 MG TABLET (FP) PO SCH (21:20)
[2021-06-04] MEDS: BUPRENORPHINE/NALOXONE 8 MG/2 MG FILM PACKET SL SCH ×2 (09:19→18:01)
[2021-06-04] MEDS: PRENATAL VITAMINS W/ FOLIC ACID TABLET (FP) PO SCH (09:19)
[2021-06-04] MEDS: SELENIUM SULFIDE 2.5% LOTION 4 OZ. TP SCH (09:38)
[2021-06-04] MEDS: NICOTINE POLACRILEX 4 MG GUM BC PRN ×3 (12:27→21:09)
[2021-06-04] MEDS: hydrOXYzine PAMOATE 25 MG CAPSULE (FP) PO PRN ×2 (17:01→21:07)
[2021-06-04] MEDS: THIAMINE HCL 100 MG TABLET (FP) PO SCH (21:07)
[2021-06-04] MEDS: QUEtiapine FUMARATE 50 MG TABLET PO SCH (21:07)
[2021-06-05] MEDS: NICOTINE POLACRILEX 4 MG GUM BC PRN ×5 (09:53→21:16)
[2021-06-05] MEDS: SELENIUM SULFIDE 2.5% LOTION 4 OZ. TP SCH (09:53)
[2021-06-05] MEDS: PRENATAL VITAMINS W/ FOLIC ACID TABLET (FP) PO SCH (09:53)
[2021-06-05] MEDS: BUPRENORPHINE/NALOXONE 8 MG/2 MG FILM PACKET SL SCH ×2 (09:53→17:56)
[2021-06-05] MEDS ORDERED: SELENIUM SULFIDE 2.5% LOTION 4 OZ. TP PRN (14:44)
[2021-06-05] MEDS: MINERAL OIL/PETROLAT/WATER TOPICAL CREAM 113 GM JAR TP PRN (14:57)
[2021-06-05] MEDS: QUEtiapine FUMARATE 50 MG TABLET PO SCH (21:15)
[2021-06-05] MEDS: THIAMINE HCL 100 MG TABLET (FP) PO SCH (21:15)
[2021-06-06] MEDS: NICOTINE POLACRILEX 4 MG GUM BC PRN ×5 (08:24→21:18)
[2021-06-06] MEDS: BUPRENORPHINE/NALOXONE 8 MG/2 MG FILM PACKET SL SCH ×2 (10:06→17:33)
[2021-06-06] MEDS: PRENATAL VITAMINS W/ FOLIC ACID TABLET (FP) PO SCH (10:06)
[2021-06-06] MEDS: THIAMINE HCL 100 MG TABLET (FP) PO SCH (21:16)
[2021-06-06] MEDS: QUEtiapine FUMARATE 50 MG TABLET PO SCH (21:16)
[2021-06-07] MEDS: BUPRENORPHINE/NALOXONE 8 MG/2 MG FILM PACKET SL SCH ×2 (09:26→17:59)
[2021-06-07] MEDS: NICOTINE POLACRILEX 4 MG GUM BC PRN ×5 (09:26→21:23)
[2021-06-07] MEDS: PRENATAL VITAMINS W/ FOLIC ACID TABLET (FP) PO SCH (09:26)
[2021-06-07] MEDS: THIAMINE HCL 100 MG TABLET (FP) PO SCH (21:21)
[2021-06-07] MEDS: QUEtiapine FUMARATE 50 MG TABLET PO SCH (21:21)
[2021-06-08] MEDS: PRENATAL VITAMINS W/ FOLIC ACID TABLET (FP) PO SCH (09:37)
[2021-06-08] MEDS: BUPRENORPHINE/NALOXONE 8 MG/2 MG FILM PACKET SL SCH ×2 (09:38→17:32)
[2021-06-08] MEDS: NICOTINE POLACRILEX 4 MG GUM BC PRN ×4 (09:39→21:24)
[2021-06-08] MEDS: hydrOXYzine PAMOATE 25 MG CAPSULE (FP) PO PRN (17:32)
[2021-06-08] MEDS: THIAMINE HCL 100 MG TABLET (FP) PO SCH (21:23)
[2021-06-08] MEDS: QUEtiapine FUMARATE 50 MG TABLET PO SCH (21:23)
[2021-06-09] MEDS: PRENATAL VITAMINS W/ FOLIC ACID TABLET (FP) PO SCH (09:38)
[2021-06-09] MEDS: NICOTINE POLACRILEX 4 MG GUM BC PRN ×5 (09:39→21:34)
[2021-06-09] MEDS: BUPRENORPHINE/NALOXONE 8 MG/2 MG FILM PACKET SL SCH ×2 (09:39→17:59)
[2021-06-09] MEDS: QUEtiapine FUMARATE 50 MG TABLET PO SCH (21:33)
[2021-06-09] MEDS: THIAMINE HCL 100 MG TABLET (FP) PO SCH (21:33)
[2021-06-10] MEDS: PRENATAL VITAMINS W/ FOLIC ACID TABLET (FP) PO SCH (10:09)
[2021-06-10] MEDS: BUPRENORPHINE/NALOXONE 8 MG/2 MG FILM PACKET SL SCH ×2 (10:09→18:09)
[2021-06-10] MEDS: NICOTINE POLACRILEX 4 MG GUM BC PRN ×6 (10:09→21:58)
[2021-06-10] MEDS: hydrOXYzine PAMOATE 25 MG CAPSULE (FP) PO PRN (21:58)
[2021-06-10] MEDS: QUEtiapine FUMARATE 50 MG TABLET PO SCH (22:00)
[2021-06-10] MEDS: THIAMINE HCL 100 MG TABLET (FP) PO SCH (22:00)
[2021-06-11] MEDS: BUPRENORPHINE/NALOXONE 8 MG/2 MG FILM PACKET SL SCH ×2 (09:45→18:14)
[2021-06-11] MEDS: NICOTINE POLACRILEX 4 MG GUM BC PRN ×4 (09:45→17:21)
[2021-06-11] MEDS: PRENATAL VITAMINS W/ FOLIC ACID TABLET (FP) PO SCH (09:45)
[2021-06-11] MEDS: hydrOXYzine PAMOATE 25 MG CAPSULE (FP) PO PRN (21:48)
[2021-06-11] MEDS: THIAMINE HCL 100 MG TABLET (FP) PO SCH (21:48)
[2021-06-11] MEDS: QUEtiapine FUMARATE 50 MG TABLET PO SCH (21:48)
[2021-06-12 06:33] VITALS: BP 113/77; PULSE 86; TEMP 97
[2021-06-12] MEDS: BUPRENORPHINE/NALOXONE 8 MG/2 MG FILM PACKET SL SCH (09:01)
[2021-06-12] MEDS: PRENATAL VITAMINS W/ FOLIC ACID TABLET (FP) PO SCH (09:01)
== END 2021-06-12 09:25 | disposition home or self-care (01) | DRG 772 ==
LOC: YASAS 09:37 → Y3W 10:48 → Y3E 05-18 13:12
PROVIDERS: ADMIT Allergy & Immunology; ATTEND Allergy & Immunology
PROC: HZ42ZZZ Group Counseling for Substance Abuse Treatment, Cognitive-Behavioral (ICD-10-PCS; principal; 2021-05-15)
DX: F10.20 Alcohol dependence, uncomplicated (principal); F11.20 Opioid dependence, uncomplicated; F14.20 Cocaine dependence, uncomplicated; F12.20 Cannabis dependence, uncomplicated; F17.210 Nicotine dependence, cigarettes, uncomplicated; F19.280 Other psychoactive substance dependence with psychoactive substance-induced anxiety disorder; F19.282 Other psychoactive substance dependence with psychoactive substance-induced sleep disorder; F41.9 Anxiety disorder, unspecified; F43.10 Post-traumatic stress disorder, unspecified; N40.0 Benign prostatic hyperplasia without lower urinary tract symptoms; L21.0 Seborrhea capitis; Z62.810 Personal history of physical and sexual abuse in childhood; Z91.410 Personal history of adult physical and sexual abuse; Z56.0 Unemployment, unspecified; Z59.00 Homelessness unspecified
CPT/HCPCS: 36415; 80053; 81003; 85027; 86780; 86803; C9803; U0003; U0005

== ENCOUNTER 2021-12-19 18:38 | Inpatient (IN) | payer OTHER ==
[2021-12-19 19:43] VITALS: BMI 23.0
[2021-12-19] MEDS ORDERED: IBUPROFEN 400 MG TABLET (FP) PO PRN (20:06)
[2021-12-19] MEDS ORDERED: DICYCLOMINE HCL 10 MG CAPSULE PO PRN (20:06)
[2021-12-19] MEDS ORDERED: ONDANSETRON *ODT* 4 MG TABLET SL PRN (20:06)
[2021-12-19] MEDS ORDERED: MAG HYDROX/AL HYDROX/SIMETH 30 ML UNIT-DOSE CUP PO PRN (20:06)
[2021-12-19] MEDS ORDERED: MAGNESIUM HYDROX 2400MG/30ML ORAL SUSPENSION 30 ML CUP PO PRN (20:06)
[2021-12-19] MEDS ORDERED: BENZOCAINE/MENTHOL (CHLORASEPTIC ) LOZENGE MM PRN (20:06)
[2021-12-19] MEDS ORDERED: MAGNESIUM CITRATE 300 ML BOTTLE PO PRN (20:06)
[2021-12-19] MEDS ORDERED: BISMUTH SUBSALICYLATE 524 MG/30 ML PO PRN (20:06)
[2021-12-19] MEDS ORDERED: methaDONE HCL 10 MG TABLET (FOR DETOX USE ONLY) PO ONE (20:06)
[2021-12-19] MEDS ORDERED: LOPERAMIDE HCL 2 MG CAPSULE PO PRN (20:06)
[2021-12-19] MEDS ORDERED: IBUPROFEN 600 MG TABLET (FP) PO PRN (20:06)
[2021-12-19] MEDS ORDERED: ACETAMINOPHEN 325 MG TABLET (FP) PO PRN ×2 (20:06)
[2021-12-19] MEDS: THIAMINE HCL 100 MG TABLET (FP) PO SCH (21:39)
[2021-12-19] MEDS: MELATONIN 5 MG TABLETS PO SCH (21:39)
[2021-12-20] MEDS: METHOCARBAMOL 500 MG TABLET PO PRN (06:09)
[2021-12-20] MEDS: NICOTINE POLACRILEX 2 MG GUM BUC PRN ×2 (06:10→10:42)
[2021-12-20 10:15] LABS: HEMATOCRIT 39.9 % (35.4-49); HEMOGLOBIN 13.3 GM/dL (11.7-16.9); MCH 29.3 pg (25.7-33.7); MCHC 33.3 g/dl (32.0-35.9); PLATELET COUNT 290 10^3/uL (134-434); RBC 4.54 M/mm3 (4.00-5.60); RDW 13.4 % (11.9-15.9); WHITE BLOOD COUNT 7.8 K/mm3 (4.0-10.0)
[2021-12-20 10:32] LABS: ALBUMIN 3.4 g/dl (3.4-5.0); BLOOD UREA NITROGEN 17.8 mg/dL (7-18); CALCIUM 8.5 mg/dL (8.5-10.1)
[2021-12-20 10:35] LABS: CREATININE 0.9 mg/dL (0.55-1.3)
[2021-12-20 10:37] LABS: BILIRUBIN,TOTAL 0.2 mg/dL (0.2-1); TOT PROT 5.9 g/dl (6.4-8.2)
[2021-12-20] MEDS: NICOTINE 21 MG/24 HOURS TOPICAL PATCH TD SCH (10:42)
[2021-12-20] MEDS: PRENATAL VITAMINS W/ FOLIC ACID TABLET (FP) PO SCH (10:42)
[2021-12-20] MEDS: ARIPiprazole 10 MG TABLET PO SCH (15:36)
[2021-12-20] MEDS: hydrOXYzine PAMOATE 25 MG CAPSULE (FP) PO PRN ×2 (17:46→23:26)
[2021-12-20] MEDS: cloNIDine HCL 0.1 MG TABLET PO PRN (23:26)
[2021-12-20] MEDS: MIRTAZAPINE 15 MG TABLET (FP) PO SCH (23:26)
[2021-12-20] MEDS: THIAMINE HCL 100 MG TABLET (FP) PO SCH (23:26)
[2021-12-20] MEDS: MELATONIN 5 MG TABLETS PO SCH (23:42)
[2021-12-21] MEDS ORDERED: methaDONE HCL 10 MG TABLET (FOR DETOX USE ONLY) PO ONE (10:00)
[2021-12-21] MEDS: NICOTINE POLACRILEX 2 MG GUM BUC PRN (10:07)
[2021-12-21] MEDS: NICOTINE 21 MG/24 HOURS TOPICAL PATCH TD SCH (10:07)
[2021-12-21] MEDS: ARIPiprazole 10 MG TABLET PO SCH (10:08)
[2021-12-21] MEDS: PRENATAL VITAMINS W/ FOLIC ACID TABLET (FP) PO SCH (10:09)
[2021-12-21] MEDS: METHOCARBAMOL 500 MG TABLET PO PRN (18:51)
[2021-12-21] MEDS: cloNIDine HCL 0.1 MG TABLET PO PRN (18:51)
[2021-12-21] MEDS: hydrOXYzine PAMOATE 25 MG CAPSULE (FP) PO PRN ×2 (18:51→22:18)
[2021-12-21] MEDS: MIRTAZAPINE 15 MG TABLET (FP) PO SCH (22:18)
[2021-12-21] MEDS: THIAMINE HCL 100 MG TABLET (FP) PO SCH (22:18)
[2021-12-21] MEDS: MELATONIN 5 MG TABLETS PO SCH (22:18)
[2021-12-22] MEDS ORDERED: diazePAM 5 MG TABLET PO PRN (10:06)
[2021-12-22] MEDS: hydrOXYzine PAMOATE 25 MG CAPSULE (FP) PO PRN (10:08)
[2021-12-22] MEDS: METHOCARBAMOL 500 MG TABLET PO PRN (10:08)
[2021-12-22] MEDS: ARIPiprazole 10 MG TABLET PO SCH (10:08)
[2021-12-22] MEDS: PRENATAL VITAMINS W/ FOLIC ACID TABLET (FP) PO SCH (10:08)
[2021-12-22] MEDS: NICOTINE 21 MG/24 HOURS TOPICAL PATCH TD SCH (10:08)
[2021-12-22] MEDS: NICOTINE POLACRILEX 2 MG GUM BUC PRN (10:11)
[2021-12-22 13:37] VITALS: BP 104/61; PULSE 71; RESP 17; TEMP 97.3
[2021-12-23] MEDS ORDERED: methaDONE HCL 10 MG TABLET (FOR DETOX USE ONLY) PO ONE (10:00)
== END 2021-12-22 15:00 | disposition left against medical advice (07) | DRG 770 ==
LOC: YASAS 18:38 → Y6N 20:35
PROVIDERS: ADMIT Allergy & Immunology; ATTEND Surgery
PROC: HZ2ZZZZ Detoxification Services for Substance Abuse Treatment (ICD-10-PCS; principal; 2021-12-19)
DX: F11.23 Opioid dependence with withdrawal (principal); F10.230 Alcohol dependence with withdrawal, uncomplicated; F14.20 Cocaine dependence, uncomplicated; F17.210 Nicotine dependence, cigarettes, uncomplicated; F19.282 Other psychoactive substance dependence with psychoactive substance-induced sleep disorder; F19.24 Other psychoactive substance dependence with psychoactive substance-induced mood disorder; F39 Unspecified mood [affective] disorder; F43.10 Post-traumatic stress disorder, unspecified; F90.9 Attention-deficit hyperactivity disorder, unspecified type; N40.0 Benign prostatic hyperplasia without lower urinary tract symptoms
CPT/HCPCS: 36415; 80053; 85027; 86780; 87811; 93005; 93010; C9803-CS; U0003; U0005